=== PATIENT | male | born 1960 | race Caucasian/White ===

== ENCOUNTER 2016-08-29 09:03 | Day surgery (SDC) | payer BC ==
[~2016-08-29] VITALS: Ht 170.2 cm; Wt 68.0 kg
[2016-08-29] VITALS (8 sets, daily range): BP systolic 108–137; BP diastolic 66–90
[~2016-08-29 09:03] MED LIST: VIAGRA50 MG ORAL
--- NOTE | 2016-08-29 09:34 | Pre-Procedure Note/Attestation ---
Pre-Procedure Note/Attestation Complete Prior to Procedure Planned Procedure: not applicable Procedure Narrative: egd/colon Indications for Procedure Pre-Operative Diagnosis: anemia Attestation I attest that I discussed the nature of the procedure; its benefits; risks and complications; and alternatives (and the risks and benefits of such alternatives ), prior to the procedure, with the patient (or the patient's legal technical account representative). I attest that, if there was a reasonable possibility of needing a blood transfusion, the patient (or the patient's legal technical account representative) was given the [facility] standardized written summary, pursuant to the [place] Blood Safety Act ([place] Health and Safety Code # 1645, as amended). I attest that I re-evaluated the patient just prior to the surgery and that there has been no change in the patient's H&P, except as documented below: BERENICE BUSBY August 29, 2016 09:34
--- NOTE | 2016-08-29 09:35 | Short Stay Surgery H&P ---
History of Present Illness History of Present Illness Chief Complaint screening colon, GERD HPI Joe Walters is a 55 year old male who was admitted on for Colon Screening Patient History Allergies: Coded Allergies: No Known Allergies (Unverified , 08/26/16) PAST MEDICAL HISTORY: (1) GERD (gastroesophageal reflux disease) Past Surgeries: Social History: Medication History Scheduled Sildenafil Citrate (Viagra), 50 MG ORAL NEEDED, (Reported) Review of Systems Cardiovascular: Reports: no symptoms Respiratory: Reports: no symptoms Skeletal: Reports: no symptoms Gastrointestinal: Reports: no symptoms Genitourinary: Reports: no symptoms Neurologic: Reports: no symptoms Endocrine: Reports: no symptoms Hematologic: Reports: no symptoms Physical Exam Vital Signs Last Vital Signs Date Time Temp Pulse Resp B/P Pulse Ox O2 Delivery O2 Flow Rate FiO2 08/29/16 09:30 97.5 79 20 137/90 97 Room Air Skin: normal HENT: normal Heart: normal Lungs: normal Abdomen: normal Extremities: normal Plan Plan of Care egd/colon Final Diagnosis: Attestation Are the patient's medical conditions optimized for surgery? Attestation Response: yes BERENICE BUSBY August 29, 2016 09:35
[2016-08-29] MEDS ORDERED: NKM (09:44)
[2016-08-29] MEDS ORDERED: LR 1000ml 1,000 ML IVLG SCH (09:57)
[2016-08-29] MEDS ORDERED: LR 1000ml ONE (10:00)
[2016-08-29] MEDS ORDERED: Propofol 10mg/ml 20ml IV ONE (10:00)
[2016-08-29] MEDS ORDERED: fentaNYL 100 mcg/2 mL IV PRN (10:00)
--- NOTE | 2016-08-29 10:02 | Anethesia Preoperative Eval ---
Anesthesia Pre-op PMH/ROS General Date of Evaluation: August 29, 2016 Time of Evaluation: 10:13 Anesthesiologist: christelle ASA Score: ASA 2 Mallampati Score Class I : Soft palate, uvula, fauces, pillars visible Class II: Soft palate, uvula, fauces visible Class III: Soft palate, base of uvula visible Class IV: Only hard plate visible Mallampati Classification: Class II Surgeon: Thomas Diagnosis: H. Pylori Surgical Procedure: GD, colonoscopy Social History: current smoker Family History: no anesthesia problems Allergies: Coded Allergies: No Known Allergies (Unverified , 08/26/16) Medications: see eMAR Past Medical History Cardiovascular: Denies: CAD, HTN, [place], arrhythmia, other, valve dz Pulmonary: Denies: COPD, SLICK, asthma, other Gastrointestinal/Genitourinary: Denies: CRI, ESRD, GERD, other Neurologic/Psychiatric: Denies: CVA, TIA, dementia, depression/anxiety, other Endocrine: Denies: DM, hypothyroidism, other, steroids HEENT: Denies: TLINGIT & HAIDA (L), TLINGIT & HAIDA (R), cataract (L), cataract (R), glaucoma, other Hematology/Immune: Denies: DVT, anemia, bleeding disorder, other Musculoskeletal/Integumentary: Denies: DDD, DJD, OA, RA, edema, other PMH Narrative: Current smoker, H. pylori PSxH Narrative: EGD Anesthesia Pre-op Phys. Exam Physician Exam Last Vital Signs Date Time Temp Pulse Resp B/P Pulse Ox O2 Delivery O2 Flow Rate FiO2 08/29/16 09:30 97.5 79 20 137/90 97 Room Air Constitutional: NAD Neurologic: CN 2-12 intact Cardiovascular: RRR, no M/R/G Respiratory: CTA Airway Exam Mallampati Score: Class II MO: full ROM: full Teeth: intact Anesthesia Pre-op A/P Studies Pre-op Studies: EKG - NSR Risk Assessment & Plan Assessment: H pylori Plan: GA, TIVA Status Change Before Surgery: No Pre-Antibiotics Drug: None MARSHA SUERO M.D. August 29, 2016 10:02
--- NOTE | 2016-08-29 10:03 | Immediate Post-Op Evaluation ---
Immediate Post-Op Evalulation Immediate Post-Op Evalulation Procedure: EGD, Colonoscopy Date of Evaluation: August 29, 2016 Time of Evaluation: 11:00 IV Fluids: 325 Blood Pressure Systolic: 106 Blood Pressure Diastolic: 64 Pulse Rate: 64 Respiratory Rate: 16 O2 Sat by Pulse Oximetry: 99 Temperature (Fahrenheit): 97.4 Pain Score (1-10): 0 Nausea: No Vomiting: No Complications No complication Patient Status: awake, patent, none Hydration Status: adequate Drug: None MARSHA SUERO M.D. August 29, 2016 10:03
--- NOTE | 2016-08-29 10:26 | Endoscopy Procedure Note ---
Endoscopy Procedure Note Indication for Procedure: gerd, screening colon Procedures Performed: EGD, colonoscopy Operative Findings/Diagnosis: gastritis, hemorrhoids Specimen: yes Pt Tolerated Procedure Well: Yes Estimated Blood Loss: none Anesthesiologist: yobany Anesthesia: MAC Implant(s) used?: No 50 yrs or older w/o bx or poly: Yes 10yrs. F/U not recommended: Yes If not recommended, why?: Above average risk 10 yrs. F/U needed: Yes 18 years or older w/prev. colo: No BERENICE BUSBY August 29, 2016 10:26
--- NOTE | 2016-08-29 10:54 | 48 Hour Post Anesthesia Eval ---
Post Anesthesia Evaluation Procedure: EGD, Colonoscopy Date of Evaluation: August 29, 2016 Time of Evaluation: 11:30 Blood Pressure Systolic: 108 0: 66 Pulse Rate: 67 Respiratory Rate: 20 O2 Sat by Pulse Oximetry: 100 Airway: patent Nausea: No Vomiting: No Pain Intensity: 0 Hydration Status: adequate Cardiopulmonary Status: Stable Mental Status/LOC: patient returned to baseline Follow-up Care/Observations: As per surgery Post-Anesthesia Complications: No anesthetic complication Follow-up care needed: N/A MARSHA SUERO M.D. August 29, 2016 10:54
--- NOTE | 2016-08-30 02:16 | Procedure Note ---
DATE OF PROCEDURE: 08/30/2016 SURGEON: Mack Guzman M.D. PROCEDURE: Upper endoscopy with biopsy and colonoscopy. ANESTHESIOLOGIST: Paolo Bhakta M.D. INSTRUMENT: Olympus adult flexible colonoscope. INDICATION: Screening colonoscopy evaluation and chronic acid reflux disease. REASON FOR PROCEDURE: The procedure, risks, benefits, and possible consequences, including hemorrhage, aspiration, perforation and infection, and alternative treatments, were explained to the patient/legal guardian by Dr. Mack Guzman and the patient/legal guardian understood and accepted these risks. DESCRIPTION OF PROCEDURE: After informed consent was obtained and the patient was adequately sedated, the Olympus upper endoscope was advanced from mouth into the second portion of duodenum and retroflexion was performed in the stomach. The patient had diffuse gastritis. Random biopsy from antrum was obtained to rule out H. pylori infection. Otherwise, the rest of the examination was within normal limits. At this time, the upper endoscope was retrieved and the patient was turned over for colonoscopy. First, a rectal exam was performed, which was normal. Then, the scope was advanced from the rectum into the cecum, documented by appendiceal orifice, ileocecal valve, and right upper quadrant palpation. Quality of prep was very good. The patient had normal colonoscopy examination. No mass, no polyp, or any other pathology was seen. Retroflexion of rectum showed evidence of minimal internal hemorrhoids. FINDINGS: 1. Gastritis status post biopsy. 2. Internal hemorrhoids. RECOMMENDATIONS: Follow up biopsies and treat accordingly. I want to thank Dr. Mack Coyle, for this kind referral. Mack Guzman M.D. DR: James JOB#: [id number] CC: Mack Coyle M.D.; Fax#: [phone] [facility]ITALJames
== END 2016-08-29 12:05 | disposition home or self-care (01) ==
LOC: GAS 09:03
DX: Z12.11 Encounter for screening for malignant neoplasm of colon (principal); K64.8 Other hemorrhoids; K21.9 Gastro-esophageal reflux disease without esophagitis; K29.50 Unspecified chronic gastritis without bleeding; F17.200 Nicotine dependence, unspecified, uncomplicated
CPT/HCPCS: 43239; 45378; J2704; J7120; 94003; 94150